=== PATIENT | male | born 1985 | race Caucasian/White ===

== ENCOUNTER 2024-01-12 23:09 | Emergency (ER) | payer OTHER ==
[~2024-01-12] VITALS: Ht 175.3 cm; Wt 65.8 kg
[2024-01-12] MEDS ORDERED: IBUPROFEN 400 MG TABLET ONE (23:59)
[2024-01-13] MEDS: IBUPROFEN 400 MG TABLET PO ONE
[2024-01-13 01:30] VITALS: BP 162/98; TEMP 98.2; O2SAT 97
== END 2024-01-13 01:30 | disposition home or self-care (01) ==
LOC: ER 23:41
DX: S13.4XXA Sprain of ligaments of cervical spine, initial encounter (principal); R51.9 Headache, unspecified; V43.62XA Car passenger injured in collision with other type car in traffic accident, initial encounter; Y93.89 Activity, other specified; Y92.488 Other paved roadways as the place of occurrence of the external cause; Y99.8 Other external cause status
CPT/HCPCS: 70450-TC; 72125-TC